=== PATIENT | male | born 1930 | race Caucasian/White ===

== ENCOUNTER → 2016-04-24 | Outpatient (CLI) | payer MEDICARE, OTHER ==
[~2016-04-24] MED LIST: ACTO15TA11 PO; ALLO100 PO; ALLO100T PO; FISH1000 PO; FURO20 PO; FURO20TA PO; GABA300 PO; GABA300C5 PO; ISOR40CR PO; LEVO50TA4 PO; LISI-363 PO; LISI-519 PO; MAGN400T PO; MIRA25TA PO; OMEP20TA PO; OMEP20TA39 PO; RANE1000 PO; RAPA4CAP PO; SITA100 PO; SITA1TAB2 PO; TERA5CAP34 PO
[2016-04-24 13:02] LABS: URINE TOTAL PROTEIN TIMED 5.8 MG/DL
[2016-04-24 13:06] LABS: AUTOMATED NEUTROPHIL # 2.2 TH/MM3 (1.8-7.7); BASOPHIL % 0.7 % (0.0-2.0); EOSINOPHIL # 0.2 TH/MM3 (0-0.4); EOSINOPHIL % 5.2 % (0.0-4.0); HEMATOCRIT 30.9 % (39.0-51.0); HEMO FLAGS DIFF FINAL; LYMPH % 27.1 % (9.0-44.0); LYMPHOCYTE # 1.1 TH/MM3 (1.0-4.8); MEAN CORPUSCULAR HEMOGLOBIN 30.4 PG (27.0-34.0); MEAN CORPUSCULAR HGB CONC 33.8 % (32.0-36.0); PLATELET COUNT 118 TH/MM3 (150-450); RED BLOOD COUNT 3.44 MIL/MM3 (4.50-5.90); RED CELL DISTRIBUTION WIDTH 16.7 % (11.6-17.2); WHITE BLOOD COUNT 3.9 TH/MM3 (4.0-11.0)
[2016-04-24 14:03] LABS: FERRITIN 47 NG/ML (26-388); TOTAL PROTEIN SPE 6.6 GM/DL (6.0-7.6); TRANSFERRIN IRON PROFILE 261 MG/DL (200-360)
[2016-04-24 14:10] LABS: WESTERGREN SEDIMENTATION RATE 37 mm/hr (0-20)
[2016-04-25 13:48] LABS: ALBUMIN SPE 3.94 GM/DL (3.50-5.00); BETA GLOBULINS (SPE) 0.73 GM/DL (0.53-1.03)
== END ==
LOC: PLAB 09:24
PROVIDERS: ATTEND General Practice
DX: D69.6 Thrombocytopenia, unspecified (principal); D64.9 Anemia, unspecified
CPT/HCPCS: 36415; 82607; 82728; 82746; 83540; 83550; 84165; 85025; 85652; 86140; 86335

== ENCOUNTER → 2016-05-29 | Outpatient (CLI) | payer MEDICARE, OTHER ==
--- NOTE | 2016-06-09 13:02 | RSPPFT ---
DATE OF PROCEDURE: 05/29/16 COMMENTS: VOLUMES DYNAMIC: FVC and FEV1 normal. STATIC: VTG, TLC mildly reduced; RV normal. FLOWS: FEV1% and FEF 25-75 normal. DIFFUSION: Normal. FLOW VOLUME LOOP: Normal configuration. IMPRESSION: Nearly normal pulmonary functions. There is a very mild reduction in the total lung capacity and VTG suggesting a possible mild restrictive defect. Otherwise, no significant airways obstruction, normal diffusion and no improvement post-bronchodilator.
== END ==
LOC: HRSP 09:06
PROVIDERS: ATTEND Internal Medicine
DX: J44.9 Chronic obstructive pulmonary disease, unspecified (principal)
CPT/HCPCS: 94060; 94620; 94726; 94729

== ENCOUNTER → 2016-06-15 | Outpatient (CLI) | payer MEDICARE, OTHER ==
[2016-06-15 12:52] LABS: AUTOMATED NEUTROPHIL # 3.1 TH/MM3 (1.8-7.7); BASOPHIL % 0.8 % (0.0-2.0); EOSINOPHIL # 0.2 TH/MM3 (0-0.4); EOSINOPHIL % 4.3 % (0.0-4.0); HEMATOCRIT 30.1 % (39.0-51.0); HEMO FLAGS DIFF FINAL; LYMPH % 22.4 % (9.0-44.0); LYMPHOCYTE # 1.1 TH/MM3 (1.0-4.8); MEAN CELL VOLUME 90.8 FL (80.0-100.0); MEAN CORPUSCULAR HGB CONC 34.2 % (32.0-36.0); NEUT % 63.5 % (16.0-70.0); PLATELET COUNT 143 TH/MM3 (150-450); RED BLOOD COUNT 3.31 MIL/MM3 (4.50-5.90); RED CELL DISTRIBUTION WIDTH 15.4 % (11.6-17.2); WHITE BLOOD COUNT 4.8 TH/MM3 (4.0-11.0)
== END ==
LOC: PLAB 10:54
PROVIDERS: ATTEND Internal Medicine Cardiovascular Disease
DX: D64.9 Anemia, unspecified (principal)
CPT/HCPCS: 36415; 85025

== ENCOUNTER 2016-08-04 18:51 | Observation (INO) | payer MEDICARE, OTHER ==
[~2016-08-04] VITALS: Ht 172.7 cm; Wt 93.9 kg
[~2016-08-04 18:51] MED LIST changes: -ACTO15TA11 PO; -ALLO100T PO; -FURO20TA PO; -GABA300C5 PO; -ISOR40CR PO; -LISI-519 PO; -OMEP20TA PO; -RANE1000 PO; -RAPA4CAP PO; -SITA1TAB2 PO
[2016-08-04 18:57] VITALS: BP 115/53; PULSE 58; RESP 16; TEMP 97.8; O2SAT 97
[2016-08-04] MEDS ORDERED: SODIUM CHLORIDE 0.9% FLUSH 10 ML FLUSH IVF PRN (19:30)
[2016-08-04] MEDS ORDERED: SODIUM CHLOR 0.9% 1000 ML INJ 1,000 ML IV ONE (19:30)
--- NOTE | 2016-08-04 19:37 | PD ---
HPI Chief Complaint: Dizziness Time Seen by Provider: 19:19 Travel History International Travel<30 days: No Contact w/Intl Traveler<30days: No Traveled to known affect area: No History of Present Illness HPI The patient is an 85-year-old male that comes in because of lightheadedness today. He states he fell, non-syncopal fall, and he was generally weak and could not get up off the floor. A neighbor help him get up. He has a history of GI bleed, anemia, diabetes mellitus, hypertension and coronary artery disease. He denies any fever. He denies any nausea, vomiting or diarrhea. He did hit his head when he fall, he states he fell on his face. He denies any focal neurologic change. The patient had colonoscopy/cauterization on Sunday, 3 days ago. The colonoscopy was done by Dr. Childers from the [facility]. He was given 2 units of blood on 21 July. 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 PFSH Past Medical History Hx Anticoagulant Therapy: No (BEEN OFF PLAVIX FOR A FEW DAYS) Arthritis: Yes (OA/GOUT) Autoimmune Disease: No Blood Disorders: No Cardiovascular Problems: Yes (HTN, STENT) High Cholesterol: Yes Chest Pain: Yes Diabetes: Yes Patient Takes Glucophage: No Diminished Hearing: Yes (PT HAS HEARING AIDS) Endocrine: No GERD: Yes Gout: Yes Genitourinary: No Hypertension: Yes Medical other: Yes (GI BLEED WITH CAUTERIZATION) Musculoskeletal: Yes ("OSTEOARTHRITIS") Neurologic: No Psychiatric: No Respiratory: No Immunizations Current: Yes Tetanus Vaccination: < 5 Years Influenza Vaccination: Yes Past Surgical History Abdominal Surgery: Yes (GALLBLADDER) Cardiac Surgery: Yes (1995--"BYPASS" 1991 & 1993"CARDIAC CATH" STENT 2016) Cholecystectomy: Yes (1975) Eye Surgery: Yes (CATARACT BILAT) Joint Replacement: Yes (TOTAL KNEE 2004--R.KNEE 1993--L.KNEE) Other Surgery: Yes (HEMORRHOIDECTOMY) Social History Alcohol Use: Yes ("LITTLE") Tobacco Use: No Substance Use: No Allergies-Medications (Allergen,Severity, Reaction): Coded Allergies: No Known Allergies (Verified , 08/04/16) Reported Meds & Prescriptions Reported Meds & Active Scripts Active Reported Actos (Pioglitazone HCl) 15 Mg Tab 15 Mg PO DAILY Rapaflo (Silodosin) 4 Mg Cap 4 Mg PO DAILY Januvia (Sitagliptin Phosphate) 100 Mg Tab 100 Mg PO DAILY Omeprazole 20 Mg Tab 20 Mg PO DAILY Lisinopril 5 Mg Tab 5 Mg PO DAILY Levothyroxine (Levothyroxine Sodium) 50 Mcg Tab 50 Mcg PO DAILY Gabapentin 300 Mg Cap 900 Mg PO HS Gabapentin 300 Mg Cap 300 Mg PO DAILY Ranexa ER 12 HR (Ranolazine) 1,000 Mg Tab 1,000 Mg PO BID Isosorbide Dinitrate ER (Isosorbide Dinitrate) 40 Mg Madie 60 Mg PO DAILY Furosemide 20 Mg Tab 20 Mg PO DAILY Allopurinol 100 Mg Tab 150 Mg PO DAILY Review of Systems Except as stated in HPI: all other systems reviewed are Neg Physical Exam Narrative GENERAL: The patient is alert, oriented 3 in no apparent distress. His vital signs show blood pressure 115/53 with a heart rate of 58 but otherwise normal. SKIN: Focused skin assessment warm/dry. There is a small abrasion in the mid forehead which appears recent evidence from the fall. HEAD: Atraumatic. Normocephalic. EYES: Pupils equal and round. No scleral icterus. No injection or drainage. ENT: No nasal bleeding or discharge. Mucous membranes pink and moist. NECK: Trachea midline. No JVD. CARDIOVASCULAR: Regular rate and rhythm. No murmur appreciated. RESPIRATORY: No accessory muscle use. Clear to auscultation. Breath sounds equal bilaterally. GASTROINTESTINAL: Abdomen soft, non-tender, nondistended. Hepatic and splenic margins not palpable. No guarding or rebound is present. MUSCULOSKELETAL: No obvious deformities. No clubbing. No cyanosis. No edema. I cannot reproduce the patient's back pain by pressing on the back. NEUROLOGICAL: Awake and alert. No obvious cranial nerve deficits. Motor grossly within normal limits. Normal speech. PSYCHIATRIC: Appropriate mood and affect; insight and judgment normal. RECTAL EXAM: No masses or tenderness, stool is brown but guaiac positive. Only a tiny bit of stool was present in the rectum. Data Data Last Documented VS Vital Signs Date Time Temp Pulse Resp B/P Pulse Ox O2 Delivery O2 Flow Rate FiO2 08/04/16 21:10 59 18 122/56 96 Room Air 08/04/16 18:57 97.8 Orders Electrocardiogram (08/04/16 19:30) Complete Blood Count With Diff (08/04/16 19:30) Comprehensive Metabolic Panel (08/04/16:30) B-Type Natriuretic Peptide (08/04/16:) Troponin I (08/04/16) Urinalysis - C+S If Indicated (08/04/16) Ecg Monitoring (08/04/16:30) Iv Access Insert/Monitor (08/04/16) Oximetry (08/04/16:) Sodium Chloride 0.9% Flush (Ns Flush) (08/04/16) Sodium Chlor 0.9% 1000 Ml Inj (Ns 1000 M (08/04/16 19:30) Ct Brain W/O Iv Contrast(Rout) (08/04/16:) Orthostatic Vital Signs (08/04/16 21:43) Admit Order (Ed Use Only) (08/04/16 21:44) Labs Laboratory Tests Test 08/04/16 19:03 White Blood Count 6.1 TH/MM3 Red Blood Count 3.10 MIL/MM3 Hemoglobin 9.1 GM/DL Hematocrit 27.8 % Mean Corpuscular Volume 89.9 FL Mean Corpuscular Hemoglobin 29.2 PG Mean Corpuscular Hemoglobin 32.5 % Concent Red Cell Distribution Width 16.2 % Platelet Count 160 TH/MM3 Mean Platelet Volume 7.7 FL Neutrophils (%) (Auto) 74.4 % Lymphocytes (%) (Auto) 13.2 % Monocytes (%) (Auto) 8.7 % Eosinophils (%) (Auto) 3.3 % Basophils (%) (Auto) 0.4 % Neutrophils # (Auto) 4.6 TH/MM3 Lymphocytes # (Auto) 0.8 TH/MM3 Monocytes # (Auto) 0.5 TH/MM3 Eosinophils # (Auto) 0.2 TH/MM3 Basophils # (Auto) 0.0 TH/MM3 CBC Comment DIFF FINAL Differential Comment Sodium Level 135 MEQ/L Potassium Level 4.3 MEQ/L Chloride Level 100 MEQ/L Carbon Dioxide Level 26.3 MEQ/L Anion Gap 9 MEQ/L Blood Urea Nitrogen 41 MG/DL Creatinine 1.60 MG/DL Estimat Glomerular Filtration 41 ML/MIN Rate Random Glucose 116 MG/DL Calcium Level 8.3 MG/DL Total Bilirubin 0.4 MG/DL Aspartate Amino Transf 23 U/L (AST/SGOT) Alanine Aminotransferase 20 U/L (ALT/SGPT) Alkaline Phosphatase 77 U/L Troponin I LESS THAN 0.02 NG/ML B-Type Natriuretic Peptide 75 PG/ML Total Protein 6.0 GM/DL Albumin 3.1 GM/DL MDM Medical Decision Making Medical Screen Exam Complete: Yes Emergency Medical Condition: Yes Medical Record Reviewed: Yes Interpretation(s) The BUN is 41 and the creatinine is 1.6 with a GFR 41. The total protein is 6.0 and the albumin is 3.1 and the calcium is 8.3 and the sodium 135. The rest of the complete metabolic profile is normal. The troponin I is normal. The CT brain shows no acute intracranial abnormality. EKG shows sinus bradycardia with rate of 58, right bundle branch block but no acute change. The CBC is 6100 with a hemoglobin of 9.1 and hematocrit of 28. Differential Diagnosis Anemia, hypoglycemia, electrolyte disorder, hyperglycemia, renal insufficiency, acute coronary syndrome, intracranial hemorrhage, intracranial massunlikely, Narrative Course The patient has generalized weakness with inability to ambulate. He could not get off the floor on his own when he fell today. His hemoglobin is low and is likely trending downward since his transfusion on the fifth of this month. His stool is guaiac positive although there was very little stool in the rectum. He did undergo colonoscopy on Sunday, 3 days ago. He was cleaned out prior to the colonoscopy and has not yet had a real bowel movement. The patient also has urinary retention, the bladder scan showed 1000 cc in his bladder. Diagnosis Primary Impression: Generalized weakness Additional Impression: Urinary retention Admitting Information Admitting Physician Requests: Admit Boyd Kennedy MD August 04, 2016 19:37
[2016-08-04 20:08] LABS: AUTOMATED NEUTROPHIL # 4.6 TH/MM3 (1.8-7.7); BASOPHIL % 0.4 % (0.0-2.0); CHLORIDE 100 MEQ/L (98-107); EOSINOPHIL # 0.2 TH/MM3 (0-0.4); EOSINOPHIL % 3.3 % (0.0-4.0); HEMATOCRIT 27.8 % (39.0-51.0); HEMO FLAGS DIFF FINAL; LYMPH % 13.2 % (9.0-44.0); LYMPHOCYTE # 0.8 TH/MM3 (1.0-4.8); MEAN CELL VOLUME 89.9 FL (80.0-100.0); MEAN CORPUSCULAR HEMOGLOBIN 29.2 PG (27.0-34.0); MEAN CORPUSCULAR HGB CONC 32.5 % (32.0-36.0); MONO % 8.7 % (0.0-8.0); NEUT % 74.4 % (16.0-70.0); PLATELET COUNT 160 TH/MM3 (150-450); POTASSIUM 4.3 MEQ/L (3.5-5.1); RED CELL DISTRIBUTION WIDTH 16.2 % (11.6-17.2); SODIUM (NA) 135 MEQ/L (136-145); WHITE BLOOD COUNT 6.1 TH/MM3 (4.0-11.0)
[2016-08-04 20:11] LABS: ANION GAP 9 MEQ/L (5-15); BICARBONATE 26.3 MEQ/L (21.0-32.0)
[2016-08-04 20:12] LABS: BLOOD UREA NITROGEN 41 MG/DL (7-18)
[2016-08-04 20:15] LABS: ALT (GPT) 20 U/L (12-78); AST (GOT) 23 U/L (15-37); GLOMERULAR FILTRATION RATE 41 ML/MIN (>89)
--- NOTE | 2016-08-04 20:15 | RADHPO ---
EXAM DATE/TIME: 08/04/2016 19:57 [facility] COMPARISON: CT BRAIN W/O CONTRAST, May 09, 2015, 19:49. INDICATIONS : Dizziness. RADIATION DOSE: 64.12 CTDIvol (mGy) MEDICAL HISTORY : Diabetes mellitus type 2. Hypertension. SURGICAL HISTORY : CABG Cholecystectomy. ENCOUNTER: Initial ACUITY: 1 day PAIN SCALE: 0/10 LOCATION: cranial TECHNIQUE: Multiple contiguous axial images were obtained of the head. Using automated exposure control and adj ustment of the mA and/or kV according to patient size, radiation dose was kept as low as reasonably a chievable to obtain optimal diagnostic quality images. FINDINGS: CEREBRUM: The ventricles are normal for age. No evidence of midline shift, mass lesion, hemorrhage or acute in farction. No extra-axial fluid collections are seen. POSTERIOR FOSSA: The cerebellum and brainstem are intact. The 4th ventricle is midline. The cerebellopontine angle i s unremarkable. EXTRACRANIAL: The visualized portion of the orbits is intact. SKULL: The calvaria is intact. No evidence of skull fracture. CONCLUSION: No acute intracranial abnormality. Ubaldo Herman MD on August 04, 2016 at 20:13 Board Certified Radiologist. This report was verified electronically.
[2016-08-04 20:16] LABS: TOTAL BILIRUBIN ADULT 0.4 MG/DL (0.2-1.0)
[2016-08-04 20:17] LABS: ALKALINE PHOSPHATASE 77 U/L (45-117)
[2016-08-04 20:45] VITALS: BP 111/56; PULSE 62; RESP 17; O2SAT 98
[2016-08-04] MEDS ORDERED: RANE1000 PO (20:58)
[2016-08-04] MEDS ORDERED: ALLO100T PO (20:58)
[2016-08-04] MEDS ORDERED: LISI-519 PO (20:58)
[2016-08-04] MEDS ORDERED: OMEP20TA PO (20:58)
[2016-08-04] MEDS ORDERED: ISOR40CR PO (20:58)
[2016-08-04] MEDS ORDERED: RAPA4CAP PO (20:58)
[2016-08-04] MEDS ORDERED: FURO20TA PO (20:58)
[2016-08-04] MEDS ORDERED: SITA1TAB2 PO (20:58)
[2016-08-04] MEDS ORDERED: GABA300C5 PO ×2 (20:58)
[2016-08-04] MEDS ORDERED: LEVO50TA4 PO (20:58)
[2016-08-04 21:10] VITALS: BP 122/56; PULSE 59; RESP 18; O2SAT 96
[2016-08-04 21:55] VITALS: BP_SYST 151; BP_SYST 154; BP_SYST 161; BP_DIAS 58; BP_DIAS 63; BP_DIAS 72; RESP 17; RESP 18
[2016-08-04] MEDS ORDERED: SODIUM CHLORIDE 0.9% FLUSH 10 ML FLUSH IV FLUSH PRN (22:00)
[2016-08-04] MEDS ORDERED: NALOXONE HCL 0.4 MG/ML AMP IV PRN (22:00)
[2016-08-04] MEDS ORDERED: ACETAMINOPHEN 325 MG TAB PO PRN (22:00)
[2016-08-04] MEDS ORDERED: SENNOSIDES 8.6 MG TAB PO PRN (22:00)
[2016-08-04] MEDS ORDERED: ONDANSETRON HCL 4 MG/2 ML VIAL IVP PRN (22:00)
[2016-08-04] MEDS ORDERED: ACTO15TA11 PO (22:22)
[2016-08-04 22:42] LABS: BLOOD, URINE NEG (NEG); GLUCOSE,URINE NEG (NEG); KETONE, URINE NEG (NEG); NITRITE,URINE NEG (NEG); PH, URINE 5.5 (5.0-8.5)
[2016-08-04 22:45] VITALS: BP 135/62; PULSE 58; RESP 16; O2SAT 97
[2016-08-04 22:48] VITALS: O2SAT 96
[2016-08-04 23:04] LABS: URINE COLOR YELLOW (YELLW/STRAW)
[2016-08-04 23:05] LABS: COMMENT (UR) CULT NOT INDICATED; CULTURE IF INDICATED CULT NOT INDICATED; RBC, URINE 0-2 /hpf (0-3); SQUAMOUS EPITHELIAL CELL URINE 0-5 /hpf (0-5); WBC, URINE 0-2 /hpf (0-5)
[2016-08-04] MEDS: PANTOPRAZOLE SOD 40 MG DELAYED RELEASE TAB PO SCH (23:11)
[2016-08-04] MEDS: SODIUM CHLOR 0.9% 1000 ML INJ 1,000 ML IV SCH (23:11)
[2016-08-05] VITALS (9 sets, daily range): BP systolic 102–146; BP diastolic 49–72; PULSE 58–70; RESP 15–20; TEMP 97.5–98.7; O2SAT 94–98
[2016-08-05] MEDS: SODIUM CHLOR 0.9% 1000 ML INJ 1,000 ML IV SCH ×3 (00:36→21:57)
[2016-08-05] MEDS: GABAPENTIN 300 MG CAP PO SCH ×3 (01:00→21:54)
[2016-08-05] MEDS ORDERED: cloNIDine HCL 0.1 MG TAB PO PRN (01:00)
[2016-08-05 06:13] LABS: AUTOMATED NEUTROPHIL # 4.3 TH/MM3 (1.8-7.7); BASOPHIL % 0.4 % (0.0-2.0); EOSINOPHIL # 0.2 TH/MM3 (0-0.4); HEMATOCRIT 26.8 % (39.0-51.0); HEMO FLAGS DIFF FINAL; LYMPH % 13.5 % (9.0-44.0); LYMPHOCYTE # 0.8 TH/MM3 (1.0-4.8); MEAN CELL VOLUME 90.8 FL (80.0-100.0); MEAN CORPUSCULAR HEMOGLOBIN 29.4 PG (27.0-34.0); MEAN CORPUSCULAR HGB CONC 32.4 % (32.0-36.0); MONO % 8.8 % (0.0-8.0); NEUT % 73.3 % (16.0-70.0); PLATELET COUNT 146 TH/MM3 (150-450); RED BLOOD COUNT 2.95 MIL/MM3 (4.50-5.90); RED CELL DISTRIBUTION WIDTH 16.1 % (11.6-17.2); WHITE BLOOD COUNT 5.8 TH/MM3 (4.0-11.0)
[2016-08-05 06:18] LABS: POTASSIUM 3.7 MEQ/L (3.5-5.1)
[2016-08-05 06:22] LABS: BICARBONATE 26.5 MEQ/L (21.0-32.0)
[2016-08-05] MEDS: PANTOPRAZOLE SOD 40 MG DELAYED RELEASE TAB PO SCH (10:00)
[2016-08-05] MEDS: SODIUM CHLORIDE 0.9% FLUSH 10 ML FLUSH IV FLUSH SCH ×2 (10:00→21:55)
--- NOTE | 2016-08-05 11:30 | MH ---
cc: LEVY BALTAZAR MD DATE OF ADMISSION: 08/04/2016 CHIEF COMPLAINT Dizziness. HISTORY OF PRESENT ILLNESS This 85-year-old male with past medical-surgical history significant for arthritis, hypertension, coronary artery disease status post stent placement, hyperlipidemia, hearing problem, diabetes mellitus and GI bleed with cauterization osteoarthritis, gout, gastroesophageal reflux disease, history of cholecystectomy and history of cardiac bypass surgery 1995 and 1991, and 1993. History of bilateral cataract surgery, total knee replacement, right and left both sides. One in 1993, one in 2004 and hemorrhoidectomy. He came to the ER at [facility] complaining of lightheadedness and dizziness. He said he fell, non syncopal episode and was greatly weak and tired and was not able to get up from the floor because of his weakness. A neighbor help him to get up and he has a history of gastrointestinal bleed, anemia, diabetes and all other medical problems as dictated above. He denies any nausea or vomiting, diarrhea. He said he had falls but it was minor. Denies any focal neurological changes. Denies any other symptoms. He had a blood transfusion on July [address] Childers, from [facility], other than that significant past medical-surgical history as dictated above. SOCIAL HISTORY Denies smoking, drink or alcohol socially. Denies any drug abuse. Lives at home with the son. 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 FAMILY HISTORY: Significant for <<2:24>> . ALLERGIES NO KNOWN DRUG ALLERGIES. MEDICATIONS Lactulose 15 mg p.o. daily. Rapaflow 4 mg p.o. daily Januvia 100 mg p.o. daily Omeprazole 20 mg p.o. Lisinopril 5 mg p.o. daily levothyroxine 50 mcg p.o. daily Neurontin 900 mg q.h.s. and 300 mg p.o. a.m. Ranexa 1000 mg p.o. b.i.d. isosorbide dinitrate 60 mg p.o. daily Furosemide 20 mg daily allopurinol 100 mg p.o. daily. REVIEW OF SYSTEMS All review of systems are negative except for weakness PHYSICAL EXAMINATION IN GENERAL: This is a 85-year-old male sitting on the bed not in any acute distress. VITAL SIGNS: Temperature 97.4, heart rate 61, respiration 10, blood pressure 119/51, O2 saturation 98% room air. HEAD, EYES, EARS, NOSE, AND THROAT: Normocephalic, atraumatic. EOMI. Oral mucosa moist. NECK: Supple. No visible thyromegaly or neck mass. Trachea central. CARDIOVASCULAR SYSTEM: Regular rate and rhythm. LUNGS: Respirations clear to auscultation bilaterally. ABDOMEN: Soft, nontender. Bowel sounds. EXTREMITIES: No cyanosis or clubbing. Full range of motion of all extremities. NEUROLOGIC: Awake, alert, oriented x4. No focal deficits. SKIN: Warm and dry. PSYCHIATRIC: Psych the patient is cooperative mood, affect is normal. LABORATORY DATA Include CBC showed WBC count was 5.8, hemoglobin 8.7 hematocrit 26.8, neutrophil percentage is high at 73.3. BMP totally unremarkable except for BUN 33 high, GFR 58 low, glucose random 126 high, calcium 7.9 low, troponin-I less than 0.02, total protein 6.0 low albumin 3.1 low, BNP 75, troponin-I less than 0.02. Urine examination is negative CT brain was done shows nothing acute. ASSESSMENT/PLAN 1. This is a 85-year-old male who came to the ER diagnosed with dizziness. CT brain does not show anything acute. The patient dizziness is resolved. The patient feels alot better. 2. 3. Urinary retention. The patient had a bladder scan done shows a 1000 cc in the bladder. Status post to the urine retention removed. 4. History of coronary artery disease continue home medication. 5. History of diabetes mellitus ADA 1800 per diet. NovoLog low-dose sliding scale. Check blood sugars and adjust monitor blood sugar. 6. History of hypothyroidism. Continue with levothyroxine 50 mcg p.o. daily. 7. Diabetic neuropathy continue with gabapentin 8. Gout continue with allopurinol. 9. DVT prophylaxis, SCDs. 10. GI prophylaxis Protonix 40 mg p.o. daily. 11. We are going to manage the patient on a daily basis and make recommendations on a daily basis. Levy Baltazar MD EA/malik /10:45 AM /11:09 AM
[2016-08-05] MEDS ORDERED: PANTOPRAZOLE SOD 20 MG DELAYED RELEASE TAB PO SCH (12:00)
[2016-08-05] MEDS: ALLOPURINOL 100 MG TAB PO SCH (12:29)
[2016-08-05] MEDS: FUROSEMIDE 20 MG TAB PO SCH (12:29)
[2016-08-05] MEDS: ISOSORBIDE MONONITRATE 60 MG TAB PO SCH (12:30)
[2016-08-05] MEDS: LISINOPRIL 5 MG TAB PO SCH (12:30)
[2016-08-05] MEDS: PIOGLITAZONE HCL 15 MG TAB PO SCH (12:30)
[2016-08-05] MEDS: LEVOTHYROXINE SODIUM 50 MCG TAB PO SCH (12:30)
--- NOTE | 2016-08-05 16:26 | EKG ---
Date Performed: 08/04/2016 Time Performed: 19:47:20 PTAGE: 85 years EKG: Sinus bradycardia. Right bundle branch block Inferior infarct - age undetermined Compared t o previous tracing, the inferior ST elevation has resolved, consistent with progression of inferior M I Clinical correlation is suggested Abnormal ECG PREVIOUS TRACING : 12/06/2013 07.29 DOCTOR: Steph Quan Interpretating Date/Time 08/05/2016 16:24:04
[2016-08-05] MEDS ORDERED: GABAPENTIN 300 MG CAP PO SCH (21:00)
[2016-08-05] MEDS: RANOLAZINE 500 MG EXTENDED RELEASE TAB PO SCH (21:55)
[2016-08-06] VITALS (7 sets, daily range): BP systolic 97–153; BP diastolic 45–60; PULSE 60–82; RESP 14–20; TEMP 97.1–99.2; O2SAT 95–98
[2016-08-06] MEDS: LEVOTHYROXINE SODIUM 50 MCG TAB PO SCH (05:19)
[2016-08-06 07:51] LABS: AUTOMATED NEUTROPHIL # 3.3 TH/MM3 (1.8-7.7); BASOPHIL % 0.6 % (0.0-2.0); EOSINOPHIL # 0.2 TH/MM3 (0-0.4); EOSINOPHIL % 3.4 % (0.0-4.0); HEMATOCRIT 23.3 % (39.0-51.0); HEMO FLAGS DIFF FINAL; LYMPH % 16.7 % (9.0-44.0); LYMPHOCYTE # 0.8 TH/MM3 (1.0-4.8); MEAN CORPUSCULAR HEMOGLOBIN 30.3 PG (27.0-34.0); MEAN CORPUSCULAR HGB CONC 33.3 % (32.0-36.0); MONO % 9.9 % (0.0-8.0); NEUT % 69.4 % (16.0-70.0); PLATELET COUNT 136 TH/MM3 (150-450); RED BLOOD COUNT 2.56 MIL/MM3 (4.50-5.90); RED CELL DISTRIBUTION WIDTH 16.7 % (11.6-17.2); WHITE BLOOD COUNT 4.8 TH/MM3 (4.0-11.0)
[2016-08-06 07:53] LABS: CHLORIDE 107 MEQ/L (98-107); SODIUM (NA) 141 MEQ/L (136-145)
[2016-08-06 08:07] LABS: ALKALINE PHOSPHATASE 67 U/L (45-117); ALT (GPT) 16 U/L (12-78); ANION GAP 6 MEQ/L (5-15); AST (GOT) 16 U/L (15-37); BICARBONATE 28.4 MEQ/L (21.0-32.0); BLOOD UREA NITROGEN 24 MG/DL (7-18); GLOMERULAR FILTRATION RATE 71 ML/MIN (>89); TOTAL BILIRUBIN ADULT 0.4 MG/DL (0.2-1.0)
[2016-08-06] MEDS: SODIUM CHLORIDE 0.9% FLUSH 10 ML FLUSH IV FLUSH SCH ×2 (08:35→21:29)
[2016-08-06] MEDS: PIOGLITAZONE HCL 15 MG TAB PO SCH (08:36)
[2016-08-06] MEDS: ISOSORBIDE MONONITRATE 60 MG TAB PO SCH (08:37)
[2016-08-06] MEDS: FUROSEMIDE 20 MG TAB PO SCH (08:37)
[2016-08-06] MEDS: LISINOPRIL 5 MG TAB PO SCH (08:37)
[2016-08-06] MEDS: GABAPENTIN 300 MG CAP PO SCH ×2 (08:37→21:27)
[2016-08-06] MEDS: RANOLAZINE 500 MG EXTENDED RELEASE TAB PO SCH ×2 (08:38→21:28)
[2016-08-06] MEDS: ALLOPURINOL 100 MG TAB PO SCH (08:38)
[2016-08-06] MEDS: PANTOPRAZOLE SOD 40 MG DELAYED RELEASE TAB PO SCH (08:38)
[2016-08-06] MEDS: TAMSULOSIN HCL 0.4 MG CAP PO SCH (08:38)
--- NOTE | 2016-08-06 09:48 | HHI.PR ---
Subjective History of Present Illness Patient deny any complaints have drop in hemoglobin check fecal occult blood test. Review of Systems Constitutional Constitutional: Fatigue Vitals/Results Intake & Output 08/05/16 08/05/16 08/06/16 15:00 23:00 07:00 Intake Total 1170 ml Output Total 2600 ml 800 ml Balance -1430 ml -800 ml Intake Oral 1170 ml Output Urine Total 2600 ml 800 ml # Bowel Movements 1 0 Vital Signs Vital Signs Date Time Temp Pulse Resp B/P Pulse Ox O2 Delivery O2 Flow Rate FiO2 08/06/16 08:11 95 21 08/06/16 08:00 99.2 60 20 107/60 98 08/06/16 05:08 08/06/16 00:43 98.6 60 14 109/52 96 08/05/16 21:14 97.9 62 20 102/52 97 08/05/16 19:30 98 21 08/05/16 15:00 98.7 63 15 104/49 96 08/05/16 11:00 98.5 70 15 136/60 97 CBC/BMP: 08/06/16 0713 08/06/16 0713 Lab Results Laboratory Tests Test 08/06/16 07:13 White Blood Count 4.8 TH/MM3 Red Blood Count 2.56 MIL/MM3 Hemoglobin 7.8 GM/DL Hematocrit 23.3 % Mean Corpuscular Volume 91.0 FL Mean Corpuscular Hemoglobin 30.3 PG Mean Corpuscular Hemoglobin 33.3 % Concent Red Cell Distribution Width 16.7 % Platelet Count 136 TH/MM3 Mean Platelet Volume 7.9 FL Neutrophils (%) (Auto) 69.4 % Lymphocytes (%) (Auto) 16.7 % Monocytes (%) (Auto) 9.9 % Eosinophils (%) (Auto) 3.4 % Basophils (%) (Auto) 0.6 % Neutrophils # (Auto) 3.3 TH/MM3 Lymphocytes # (Auto) 0.8 TH/MM3 Monocytes # (Auto) 0.5 TH/MM3 Eosinophils # (Auto) 0.2 TH/MM3 Basophils # (Auto) 0.0 TH/MM3 CBC Comment DIFF FINAL Differential Comment Sodium Level 141 MEQ/L Potassium Level 4.0 MEQ/L Chloride Level 107 MEQ/L Carbon Dioxide Level 28.4 MEQ/L Anion Gap 6 MEQ/L Blood Urea Nitrogen 24 MG/DL Creatinine 1.00 MG/DL Estimat Glomerular Filtration 71 ML/MIN Rate Random Glucose 108 MG/DL Calcium Level 7.9 MG/DL Total Bilirubin 0.4 MG/DL Aspartate Amino Transf 16 U/L (AST/SGOT) Alanine Aminotransferase 16 U/L (ALT/SGPT) Alkaline Phosphatase 67 U/L Total Protein 5.0 GM/DL Albumin 2.5 GM/DL Physical Exam General General Appearance: Well Developed, Well Nourished, No Acute Distress, Comfortable Eyes Eye Exam: Pupils Equal, Pupils Reactive, Sclera White, Extraocular Movement Intact Throat Throat Exam: Oral Mucosa [place] & Moist, Oral Pharynx Normal Neck Neck Exam: Neck Supple, Trachea Midline Pulmonary Resp Exam: Clear Bilaterally, Breath Sounds Equal, No Distress Cardiology CV Exam: Regular, Normal Sinus Rhythm Gastrointestinal/Abdomen GI Exam: Soft, Non-Tender, Bowel Sounds Present Musculoskeletal MS Exam: Normal Tone Integumentary Skin Exam: Clear, Warm, Dry, Intact Extremeties Extremities Exam: No Edema Neurologic Neuro Exam: Alert, Awake, Moving All Extremities, No Focal Deficits Psychiatric Psych Exam: Appropriate Responses PUD Prophylasis PUD Prophylaxis: Protonix Assessment/Plan Assessment/Plan ASSESSMENT/PLAN 1. This is a 85-year-old male who came to the ER diagnosed with dizziness. CT brain does not show anything acute. The patient dizziness is resolved. The patient feels alot better. 2. 3. Urinary retention. The patient had a bladder scan done shows a 1000 cc in the bladder. Status post to the urine retention removed. 4. History of coronary artery disease continue home medication. 5. History of diabetes mellitus ADA 1800 per diet. NovoLog low-dose sliding scale. Check blood sugars and adjust monitor blood sugar. 6. History of hypothyroidism. Continue with levothyroxine 50 mcg p.o. daily. 7. Diabetic neuropathy continue with gabapentin 8. Gout continue with allopurinol. 9. DVT prophylaxis, SCDs. 10. GI prophylaxis Protonix 40 mg p.o. daily. 11. Drop in hemoglobin check fecal occult blood test. We are going to manage the patient on a daily basis and make recommendations on a daily basis. Levy Reyes MD August 06, 2016 09:48
[2016-08-06] MEDS: SODIUM CHLOR 0.9% 1000 ML INJ 1,000 ML IV SCH (12:58)
[2016-08-07 00:34] VITALS: BP 101/53; PULSE 62; RESP 20; TEMP 98; O2SAT 98
[2016-08-07] MEDS: LEVOTHYROXINE SODIUM 50 MCG TAB PO SCH (06:07)
[2016-08-07 08:00] VITALS: BP 118/59; PULSE 55; RESP 18; TEMP 97.9; O2SAT 96
[2016-08-07 08:06] LABS: CHLORIDE 108 MEQ/L (98-107); SODIUM (NA) 142 MEQ/L (136-145)
[2016-08-07 08:08] LABS: BASOPHIL % 0.7 % (0.0-2.0); EOSINOPHIL # 0.2 TH/MM3 (0-0.4); EOSINOPHIL % 3.8 % (0.0-4.0); HEMATOCRIT 23.9 % (39.0-51.0); LYMPH % 20.5 % (9.0-44.0); LYMPHOCYTE # 0.9 TH/MM3 (1.0-4.8); MEAN CELL VOLUME 90.9 FL (80.0-100.0); MEAN CORPUSCULAR HEMOGLOBIN 30.3 PG (27.0-34.0); MEAN CORPUSCULAR HGB CONC 33.3 % (32.0-36.0); MONO % 9.7 % (0.0-8.0); NEUT % 65.3 % (16.0-70.0); PLATELET COUNT 134 TH/MM3 (150-450); RED BLOOD COUNT 2.63 MIL/MM3 (4.50-5.90); RED CELL DISTRIBUTION WIDTH 16.6 % (11.6-17.2); WHITE BLOOD COUNT 4.5 TH/MM3 (4.0-11.0)
[2016-08-07 08:10] LABS: HEMO FLAGS AUTO DIFF
[2016-08-07 08:12] LABS: ANION GAP 7 MEQ/L (5-15); BICARBONATE 27.4 MEQ/L (21.0-32.0); BLOOD UREA NITROGEN 24 MG/DL (7-18)
[2016-08-07 08:15] LABS: ALT (GPT) 14 U/L (12-78); AST (GOT) 15 U/L (15-37); GLOMERULAR FILTRATION RATE 76 ML/MIN (>89)
[2016-08-07 08:16] LABS: TOTAL BILIRUBIN ADULT 0.4 MG/DL (0.2-1.0)
[2016-08-07 08:18] LABS: ALKALINE PHOSPHATASE 64 U/L (45-117)
--- NOTE | 2016-08-07 08:36 | MB ---
cc: NICOLE PATEL DATE OF CONSULTATION: 08/07/2016 HISTORY OF PRESENT ILLNESS Mr. Boyer is a pleasant 85-year-old male who was admitted with generalized weakness over the weekend and was found to be in urinary retention. A Matias catheter was placed with over a liter of urine drained. He does have a urologist, Dr. Mg, who he follows with and has been on Rapaflo 0.8 mg p.o. q.h.s. He denies requiring a Matias catheter insertion for retention in the past. He notes nocturia 1-2 times at night and admits to occasional constipation. He denies any urinary tract infections, blood in his urine or stone disease. PAST MEDICAL HISTORY 1. Arthritis. 2. Hypertension. 3. Heart disease. 4. Hyperlipidemia. 5. Diabetes. 6. GI bleed. 7. Osteoarthritis. 8. Gout. 9. GERD. 10.BPH. PAST SURGICAL HISTORY 1. Cataracts. 2. Bilateral total knee replacement. 3. Hemorrhoidectomy. 4. Cholecystectomy. 5. Cardiac bypass surgery with coronary stent insertion in the past. SOCIAL HISTORY Denies smoking but drinks socially. Denies any drug abuse. FAMILY HISTORY Denies any history of prostate cancer. ALLERGIES He has no known allergies. MEDICATIONS For medications please refer to the chart. REVIEW OF SYSTEMS A 12-point review of systems was performed and is negative per the HPI. PHYSICAL EXAMINATION VITAL SIGNS: Temperature 98, heart rate 62, respiratory 20, blood pressure 101/53. GENERAL: A well-developed, well-nourished 85-year-old man in no acute distress. HEENT: Normocephalic, atraumatic. Pupils equal, round and reactive to light. Extraocular movements intact. NECK: Supple. HEART: Regular rate and rhythm. LUNGS: Clear. ABDOMEN: Soft, nontender, distended. : Normal phallus. Testes descended. Matias catheter in place. EXTREMITIES: No cyanosis, clubbing or edema. LABORATORY White count 4.8, hemoglobin 7.8, hematocrit 23.3, platelet count 136, sodium 141, potassium 4.0, chloride 107, CO2 28, BUN 24, creatinine 1.0, glucose 108. Urinalysis was negative. ASSESSMENT An 85-year-old male with a history of BPH, currently on alpha abhijeet at home, Rapaflo 0.8 mg p.o. q.h.s. Would recommend void trial today and check postvoid residual with bladder scanning. Patient to continue with Rapaflo at home and follow-up with Dr. Mg his urologist on an outpatient basis. Thank you for the consult and allowing me to participate in the care of this patient. Nicole KEENAN /8:23 AM /8:29 AM
[2016-08-07] MEDS: SODIUM CHLORIDE 0.9% FLUSH 10 ML FLUSH IV FLUSH SCH (09:00)
[2016-08-07] MEDS: TAMSULOSIN HCL 0.4 MG CAP PO SCH (09:03)
[2016-08-07] MEDS: ISOSORBIDE MONONITRATE 60 MG TAB PO SCH (09:03)
[2016-08-07] MEDS: FUROSEMIDE 20 MG TAB PO SCH (09:03)
[2016-08-07] MEDS: PIOGLITAZONE HCL 15 MG TAB PO SCH (09:03)
[2016-08-07] MEDS: GABAPENTIN 300 MG CAP PO SCH (09:03)
[2016-08-07] MEDS: LISINOPRIL 5 MG TAB PO SCH (09:04)
[2016-08-07] MEDS: RANOLAZINE 500 MG EXTENDED RELEASE TAB PO SCH (09:04)
[2016-08-07] MEDS: PANTOPRAZOLE SOD 40 MG DELAYED RELEASE TAB PO SCH (09:04)
[2016-08-07] MEDS: ALLOPURINOL 100 MG TAB PO SCH (09:04)
[2016-08-07 09:11] LABS: PLATELET ESTIMATE SMEAR LOW (NORMAL); PLATELET MORPHOLOGY NORMAL (NORMAL); SCAN/DIFF AUTO DIFF CONFIRMED
--- NOTE | 2016-08-07 09:19 | HHI.PR ---
Subjective History of Present Illness Patient deny any complaints have drop in hemoglobin checked fecal occult blood test...positive consulted GI. d/w TITA [place]. Review of Systems Constitutional Constitutional: Fatigue Vitals/Results Intake & Output 08/06/16 08/06/16 08/07/16 14:59 22:59 06:59 Intake Total 930 ml 1100 ml 0 ml Output Total 650 ml 600 ml Balance 280 ml 1100 ml -600 ml Intake Oral 930 ml 300 ml IV Total 800 ml 0 ml Output Urine Total 650 ml 600 ml # Bowel Movements 1 Vital Signs Vital Signs Date Time Temp Pulse Resp B/P Pulse Ox O2 Delivery O2 Flow Rate FiO2 08/07/16 08:00 96 21 08/07/16 04:40 08/07/16 00:34 98.0 62 20 101/53 98 08/06/16 20:42 98.4 67 16 107/56 96 08/06/16 19:20 95 21 08/06/16 15:58 97.8 65 18 97/45 97 08/06/16 12:00 97.1 82 20 153/57 98 CBC/BMP: 08/07/16 0617 08/07/16 0617 Lab Results Laboratory Tests Test 08/07/16 06:17 White Blood Count 4.5 TH/MM3 Red Blood Count 2.63 MIL/MM3 Hemoglobin 8.0 GM/DL Hematocrit 23.9 % Mean Corpuscular Volume 90.9 FL Mean Corpuscular Hemoglobin 30.3 PG Mean Corpuscular Hemoglobin 33.3 % Concent Red Cell Distribution Width 16.6 % Platelet Count 134 TH/MM3 Mean Platelet Volume 8.6 FL Neutrophils (%) (Auto) 65.3 % Lymphocytes (%) (Auto) 20.5 % Monocytes (%) (Auto) 9.7 % Eosinophils (%) (Auto) 3.8 % Basophils (%) (Auto) 0.7 % Neutrophils # (Auto) 3.0 TH/MM3 Lymphocytes # (Auto) 0.9 TH/MM3 Monocytes # (Auto) 0.4 TH/MM3 Eosinophils # (Auto) 0.2 TH/MM3 Basophils # (Auto) 0.0 TH/MM3 CBC Comment AUTO DIFF Differential Comment AUTO DIFF CONFIRMED Platelet Estimate LOW Platelet Morphology Comment NORMAL Sodium Level 142 MEQ/L Potassium Level 4.0 MEQ/L Chloride Level 108 MEQ/L Carbon Dioxide Level 27.4 MEQ/L Anion Gap 7 MEQ/L Blood Urea Nitrogen 24 MG/DL Creatinine 0.95 MG/DL Estimat Glomerular Filtration 76 ML/MIN Rate Random Glucose 118 MG/DL Calcium Level 8.2 MG/DL Total Bilirubin 0.4 MG/DL Aspartate Amino Transf 15 U/L (AST/SGOT) Alanine Aminotransferase 14 U/L (ALT/SGPT) Alkaline Phosphatase 64 U/L Total Protein 5.2 GM/DL Albumin 2.5 GM/DL Microbiology Microbiology 08/06/16 Stool Occult Blood (ZEFERINO) - Final, Complete HEMOCCULT POSITIVE Physical Exam General General Appearance: Well Developed, Well Nourished, No Acute Distress, Comfortable Eyes Eye Exam: Pupils Equal, Pupils Reactive, Sclera White, Extraocular Movement Intact Throat Throat Exam: Oral Mucosa Ozan & Moist, Oral Pharynx Normal Neck Neck Exam: Neck Supple, Trachea Midline Pulmonary Resp Exam: Clear Bilaterally, Breath Sounds Equal, No Distress Cardiology CV Exam: Regular, Normal Sinus Rhythm Gastrointestinal/Abdomen GI Exam: Soft, Non-Tender, Bowel Sounds Present Musculoskeletal MS Exam: Normal Tone Integumentary Skin Exam: Clear, Warm, Dry, Intact Extremeties Extremities Exam: No Edema Neurologic Neuro Exam: Alert, Awake, Moving All Extremities, No Focal Deficits Psychiatric Psych Exam: Appropriate Responses PUD Prophylasis PUD Prophylaxis: Protonix Assessment/Plan Assessment/Plan ASSESSMENT/PLAN 1. This is a 85-year-old male who came to the ER diagnosed with dizziness. CT brain does not show anything acute. The patient dizziness is resolved. The patient feels a lot better. 2. 3. Urinary retention. The patient had a bladder scan done shows a 1000 cc in the bladder. Status post to the urine retention removed...urology input noted s/p foleys out. 4. History of coronary artery disease continue home medication. 5. History of diabetes mellitus ADA 1800 per diet. NovoLog low-dose sliding scale. Check blood sugars and adjust monitor blood sugar. 6. History of hypothyroidism. Continue with levothyroxine 50 mcg p.o. daily. 7. Diabetic neuropathy continue with gabapentin 8. Gout continue with allopurinol. 9. DVT prophylaxis, SCDs. 10. GI prophylaxis Protonix 40 mg p.o. daily. 11. Drop in hemoglobin checked fecal occult blood test...positive consulted GI. We are going to manage the patient on a daily basis and make recommendations on a daily basis. Discussed Condition with: Patient Levy Reyes MD August 07, 2016 09:19
[2016-08-07 12:00] VITALS: BP 97/49; PULSE 60; RESP 18; TEMP 97.2; O2SAT 96
[2016-08-07 16:00] VITALS: BP 92/46; PULSE 56; RESP 16; TEMP 97; O2SAT 96
--- NOTE | 2016-08-09 07:21 | MD ---
cc: LEVY REYES MD ADMISSION DATE: 08/04/2016 DISCHARGE DATE: 08/07/2016 Okay to discharge the patient home. CONDITION AT THE TIME OF DISCHARGE Satisfactory ACTIVITY As tolerated. DIET Cardiac diet ALLERGIES NO KNOWN DRUG ALLERGIES. DISCHARGE MEDICATIONS Includes: 1. Allopurinol 100 mg p.o. daily 2. Furosemide 20 mg daily 3. Gabapentin 300 mg p.o. daily at morning and 900 mg at night time 4. Isosorbide 60 mg p.o. daily 5. Levothyroxine 50 mcg p.o. daily 6. Lisinopril 5 mg p.o. daily 7. Omeprazole 20 mg p.o. daily 8. Actos 15 mg p.o. daily 9. Ranexa ER 1000 mg p.o. b.i.d. 10. Rapaflo 4 mg p.o. daily 11. Januvia 100 mg p.o. daily. The patient advised to follow with PCP, cardiology GI and neurology. ADMISSION DIAGNOSIS 1. Dizziness which has resolved. CT brain does not show anything acute. 2. Urinary retention. The patient had 1000 cc urine in the Bladder. The patient is status post Matias catheter placement and urology has seen the patient okay to DC the Matias catheter, the patient deemed good after that. 3. History of coronary artery disease. 4. History of diabetes mellitus. The patient advised to take ADA 1800 calorie diet. 5. Diabetic neuropathy. 6. Drop in hemoglobin, fecal occult blood test was checked which was positive for blood. GI was consulted and I discussed the case with Dr. Moncada. The patient is okay to go from the GI standpoint. The patient had an extensive workup done recently. The patient had recent stenting done in June 2016 in the heart, but is not able to tolerate any blood thinners because of severe lower GI bleed. The patient is not taking aspirin and Plavix for any blood thinner. Per patient, the patient sees Dr. Masters as a bundle tier and is advised to see Dr. Masters. The patient has a hemoglobin of 9.1 at admission and at the discharge, it was 8.0. The patient's urine was normal. The patient remained stable during the hospital stay. The patient was given Flomax. The patient discharged in a satisfactory condition. Advised to follow with PCP and GI. Further details in the medical record. Levy Reyes MD EA/GERDA /5:18 PM /7:13 AM
== END 2016-08-07 19:20 | disposition home or self-care (01) ==
LOC: PHED 18:51 → PHEDA 21:46 → INTOOBSV 21:46 → PHICU 08-05 00:24 → PH3B 08-05 17:00
PROVIDERS: ADMIT Family Medicine; ATTEND Family Medicine
DX: R42 Dizziness and giddiness (principal); M19.90 Unspecified osteoarthritis, unspecified site; E03.9 Hypothyroidism, unspecified; E11.40 Type 2 diabetes mellitus with diabetic neuropathy, unspecified; I10 Essential (primary) hypertension; I25.10 Atherosclerotic heart disease of native coronary artery without angina pectoris; M10.9 Gout, unspecified; N40.1 Benign prostatic hyperplasia with lower urinary tract symptoms; R33.8 Other retention of urine; E78.5 Hyperlipidemia, unspecified; K21.9 Gastro-esophageal reflux disease without esophagitis; Z95.1 Presence of aortocoronary bypass graft; Z95.5 Presence of coronary angioplasty implant and graft; Z96.653 Presence of artificial knee joint, bilateral; Z79.84 Long term (current) use of oral hypoglycemic drugs; R00.1 Bradycardia, unspecified; I45.10 Unspecified right bundle-branch block; R94.31 Abnormal electrocardiogram [ECG] [EKG]
CPT/HCPCS: 70450; 80048; 80053; 81001; 82272; 83880; 84484; 85025; 93005; 97110; 97163; 97530; 99285; G0378; G8987; G8988; J7030

== ENCOUNTER → 2016-08-23 | Outpatient (CLI) | payer MEDICARE, OTHER ==
[~2016-08-23] MED LIST changes: +ACTO15TA11 PO; -ALLO100 PO; +ALLO100T PO; -FISH1000 PO; -FURO20 PO; +FURO20TA PO; -GABA300 PO; +GABA300C5 PO; +ISOR40CR PO; -LISI-363 PO; +LISI-519 PO; -MAGN400T PO; -MIRA25TA PO; +OMEP20TA PO; -OMEP20TA39 PO; +RANE1000 PO; +RAPA4CAP PO; -SITA100 PO; +SITA1TAB2 PO; -TERA5CAP34 PO
[2016-08-23 13:29] LABS: ANION GAP 4 MEQ/L (5-15); AST (GOT) 16 U/L (15-37); BICARBONATE 30.6 MEQ/L (21.0-32.0); BLOOD UREA NITROGEN 15 MG/DL (7-18); CHLORIDE 103 MEQ/L (98-107); GLOMERULAR FILTRATION RATE 69 ML/MIN (>89); GLUCOSE,FASTING 138 MG/DL (74-99); POTASSIUM 3.8 MEQ/L (3.5-5.1); SODIUM (NA) 138 MEQ/L (136-145)
[2016-08-23 13:30] LABS: ALT (GPT) 18 U/L (12-78)
[2016-08-23 13:32] LABS: ALKALINE PHOSPHATASE 99 U/L (45-117); HDL CHOLESTEROL 38.8 MG/DL (40.0-60.0); LDL CHOLESTEROL 70 MG/DL (0-99); TOTAL BILIRUBIN ADULT 0.3 MG/DL (0.2-1.0)
[2016-08-23 17:07] LABS: HEMOGLOBIN A1a 0.9 %; HEMOGLOBIN A1b 0.7 %; HEMOGLOBIN Ao 85.7 %; HEMOGLOBIN F 0.9 %; HEMOGLOBIN LA1C 2.2 %; HEMOGLOBIN P3 3.9 %
== END ==
LOC: PLAB 10:41
PROVIDERS: ATTEND General Practice
DX: E11.9 Type 2 diabetes mellitus without complications (principal); I25.10 Atherosclerotic heart disease of native coronary artery without angina pectoris; E78.2 Mixed hyperlipidemia; Z79.899 Other long term (current) drug therapy
CPT/HCPCS: 36415; 80053; 80061; 83036

== ENCOUNTER → 2016-10-16 | Outpatient (CLI) | payer MEDICARE, OTHER ==
[2016-10-16 18:21] LABS: AUTOMATED NEUTROPHIL # 3.5 TH/MM3 (1.8-7.7); BASOPHIL % 0.5 % (0.0-2.0); EOSINOPHIL # 0.2 TH/MM3 (0-0.4); EOSINOPHIL % 3.8 % (0.0-4.0); HEMO FLAGS DIFF FINAL; LYMPH % 20.7 % (9.0-44.0); LYMPHOCYTE # 1.1 TH/MM3 (1.0-4.8); MEAN CELL VOLUME 87.8 FL (80.0-100.0); MEAN CORPUSCULAR HEMOGLOBIN 29.7 PG (27.0-34.0); MEAN CORPUSCULAR HGB CONC 33.9 % (32.0-36.0); MONO % 9.3 % (0.0-8.0); NEUT % 65.7 % (16.0-70.0); PLATELET COUNT 144 TH/MM3 (150-450); RED BLOOD COUNT 3.64 MIL/MM3 (4.50-5.90); RED CELL DISTRIBUTION WIDTH 18.1 % (11.6-17.2); WHITE BLOOD COUNT 5.3 TH/MM3 (4.0-11.0)
== END ==
LOC: PLAB 14:26
PROVIDERS: ATTEND Internal Medicine Cardiovascular Disease
DX: D64.9 Anemia, unspecified (principal)
CPT/HCPCS: 36415; 85025

== ENCOUNTER → 2016-11-16 | Outpatient (CLI) | payer MEDICARE, OTHER ==
[2016-11-16 18:06] LABS: WBC, SYNOVIAL FLUID 205 /MM3 (0-200)
[2016-11-16 18:23] LABS: HEMATOCRIT 34.1 % (39.0-51.0); MEAN CELL VOLUME 90.3 FL (80.0-100.0); MEAN CORPUSCULAR HEMOGLOBIN 29.7 PG (27.0-34.0); MEAN CORPUSCULAR HGB CONC 32.9 % (32.0-36.0); PLATELET COUNT 146 TH/MM3 (150-450); RED BLOOD COUNT 3.78 MIL/MM3 (4.50-5.90); RED CELL DISTRIBUTION WIDTH 20.6 % (11.6-17.2); REVIEW FLAG FINAL; WHITE BLOOD COUNT 4.5 TH/MM3 (4.0-11.0)
[2016-11-16 18:51] LABS: WESTERGREN SEDIMENTATION RATE 41 mm/hr (0-20)
== END ==
LOC: PLAB 15:07
PROVIDERS: ATTEND Orthopaedic Surgery
DX: M25.462 Effusion, left knee (principal); Z96.652 Presence of left artificial knee joint
CPT/HCPCS: 36415; 85027; 85652; 86140; 87070; 87205; 89051; 89060

== ENCOUNTER → 2016-12-05 | Outpatient (CLI) | payer MEDICARE, OTHER ==
[2016-12-05 13:21] LABS: GLUCOSE,FASTING 192 MG/DL (74-99)
[2016-12-05 13:30] LABS: FREE T4 1.01 NG/DL (0.76-1.46); LDL CHOLESTEROL DIRECT 81 MG/DL (0-99)
[2016-12-05 13:31] LABS: CREATINE KINASE 83 U/L (39-308)
[2016-12-05 18:07] LABS: HEMOGLOBIN A1a 1.2 %; HEMOGLOBIN A1b 0.9 %; HEMOGLOBIN Ao 81.6 %; HEMOGLOBIN F 1.2 %; HEMOGLOBIN LA1C 2.8 %; HEMOGLOBIN P3 4.6 %
== END ==
LOC: PLAB 08:56
PROVIDERS: ATTEND General Practice
DX: E11.9 Type 2 diabetes mellitus without complications (principal); E78.2 Mixed hyperlipidemia; E03.9 Hypothyroidism, unspecified; Z79.899 Other long term (current) drug therapy
CPT/HCPCS: 36415; 82550; 82947; 83036; 83721; 84439; 84443

== ENCOUNTER → 2016-12-19 | Outpatient (CLI) | payer MEDICARE, OTHER ==
[2016-12-19 15:46] LABS: AUTOMATED NEUTROPHIL # 3.5 TH/MM3 (1.8-7.7); BASOPHIL % 0.4 % (0.0-2.0); EOSINOPHIL # 0.3 TH/MM3 (0-0.4); HEMATOCRIT 30.8 % (39.0-51.0); LYMPH % 19.5 % (9.0-44.0); MEAN CELL VOLUME 91.5 FL (80.0-100.0); MEAN CORPUSCULAR HEMOGLOBIN 30.3 PG (27.0-34.0); MEAN CORPUSCULAR HGB CONC 33.2 % (32.0-36.0); MONO % 7.6 % (0.0-8.0); NEUT % 67.5 % (16.0-70.0); PLATELET COUNT 143 TH/MM3 (150-450); RED BLOOD COUNT 3.37 MIL/MM3 (4.50-5.90); RED CELL DISTRIBUTION WIDTH 18.4 % (11.6-17.2); WHITE BLOOD COUNT 5.1 TH/MM3 (4.0-11.0)
[2016-12-19 16:01] LABS: HEMO FLAGS AUTO DIFF
[2016-12-19 16:56] LABS: OVALOCYTES 1+ (NORMAL); PLATELET ESTIMATE SMEAR LOW (NORMAL); PLATELET MORPHOLOGY NORMAL (NORMAL); SCAN/DIFF AUTO DIFF CONFIRMED
== END ==
LOC: PLAB 12:43
PROVIDERS: ATTEND Internal Medicine Interventional Cardiology
DX: D64.9 Anemia, unspecified (principal); D69.6 Thrombocytopenia, unspecified
CPT/HCPCS: 36415; 85025

== ENCOUNTER → 2017-02-26 | Outpatient (CLI) | payer MEDICARE, OTHER ==
[~2017-02-26] MED LIST changes: -ACTO15TA11 PO; +ACTO15TA22 PO; -OMEP20TA PO; +OMEP20TA93 PO
[2017-02-26 13:38] LABS: ANION GAP 6 MEQ/L (5-15); BLOOD UREA NITROGEN 29 MG/DL (7-18); CHLORIDE 107 MEQ/L (98-107); GLOMERULAR FILTRATION RATE 62 ML/MIN (>89); GLUCOSE,FASTING 160 MG/DL (74-99); POTASSIUM 3.9 MEQ/L (3.5-5.1); SODIUM (NA) 141 MEQ/L (136-145)
[2017-02-26 13:40] LABS: LDL CHOLESTEROL DIRECT 74 MG/DL (0-99)
[2017-02-26 17:06] LABS: HEMOGLOBIN A1a 0.7 %; HEMOGLOBIN A1b 0.6 %; HEMOGLOBIN Ao 87.4 %; HEMOGLOBIN LA1C 2.3 %; HEMOGLOBIN P3 3.6 %
== END ==
LOC: PLAB 09:35
PROVIDERS: ATTEND General Practice
DX: E78.2 Mixed hyperlipidemia (principal); E11.65 Type 2 diabetes mellitus with hyperglycemia; I10 Essential (primary) hypertension; Z79.899 Other long term (current) drug therapy
CPT/HCPCS: 36415; 80048; 83036; 83721

== ENCOUNTER → 2017-04-23 | Outpatient (CLI) | payer MEDICARE, OTHER ==
[2017-04-23 13:43] LABS: ALBUMIN 3.3 GM/DL (3.4-5.0); BICARBONATE 28.8 MEQ/L (21.0-32.0); BLOOD UREA NITROGEN 22 MG/DL (7-18); CALCIUM 8.7 MG/DL (8.5-10.1); CHLORIDE 106 MEQ/L (98-107); CHOLESTEROL 155 MG/DL (120-200); CREATININE 1.05 MG/DL (0.60-1.30); GLOMERULAR FILTRATION RATE 67 ML/MIN (>89); GLUCOSE,FASTING 170 MG/DL (74-99); SODIUM (NA) 142 MEQ/L (136-145)
[2017-04-23 13:55] LABS: ALKALINE PHOSPHATASE 93 U/L (45-117); ALT (GPT) 16 U/L (12-78); AST (GOT) 19 U/L (15-37); CHOLESTEROL/ HDL RATIO 4.04 RATIO; HDL CHOLESTEROL 38.3 MG/DL (40.0-60.0); LDL CHOLESTEROL 73 MG/DL (0-99); TOTAL BILIRUBIN ADULT 0.4 MG/DL (0.2-1.0); TOTAL PROTEIN 6.3 GM/DL (6.4-8.2); TRIGLYCERIDES 218 MG/DL (42-150)
== END ==
LOC: PLAB 10:12
PROVIDERS: ATTEND Internal Medicine Interventional Cardiology
DX: R07.89 Other chest pain (principal); I25.10 Atherosclerotic heart disease of native coronary artery without angina pectoris; R06.09 Other forms of dyspnea; R60.0 Localized edema; E78.2 Mixed hyperlipidemia; Z79.899 Other long term (current) drug therapy
CPT/HCPCS: 36415; 80053; 80061; 82550; 84443

== ENCOUNTER → 2017-07-16 | Outpatient (CLI) | payer MEDICARE, OTHER ==
[2017-07-16 13:58] LABS: HEMOGLOBIN A1C 6.1 % (4.3-6.0)
[2017-07-16 14:05] LABS: ALBUMIN 3.5 GM/DL (3.4-5.0); ALT (GPT) 17 U/L (12-78); AST (GOT) 17 U/L (15-37); BICARBONATE 27.4 MEQ/L (21.0-32.0); BLOOD UREA NITROGEN 15 MG/DL (7-18); CALCIUM 8.7 MG/DL (8.5-10.1); CHLORIDE 106 MEQ/L (98-107); CHOLESTEROL 125 MG/DL (120-200); CREATININE 1.17 MG/DL (0.60-1.30); GLOMERULAR FILTRATION RATE 59 ML/MIN (>89); GLUCOSE,FASTING 136 MG/DL (74-99); SODIUM (NA) 142 MEQ/L (136-145); TRIGLYCERIDES 213 MG/DL (42-150)
[2017-07-16 14:08] LABS: ALKALINE PHOSPHATASE 107 U/L (45-117); CHOLESTEROL/ HDL RATIO 3.75 RATIO; HDL CHOLESTEROL 33.3 MG/DL (40.0-60.0); LDL CHOLESTEROL 49 MG/DL (0-99); TOTAL BILIRUBIN ADULT 0.4 MG/DL (0.2-1.0); TOTAL PROTEIN 6.8 GM/DL (6.4-8.2)
== END ==
LOC: PLAB 10:50
PROVIDERS: ATTEND General Practice
DX: E11.42 Type 2 diabetes mellitus with diabetic polyneuropathy (principal); E78.2 Mixed hyperlipidemia; I10 Essential (primary) hypertension; Z79.899 Other long term (current) drug therapy
CPT/HCPCS: 36415; 80053; 80061; 82043; 83036